=== PATIENT | female | born 1960 | race Caucasian/White ===

== ENCOUNTER 2016-11-09 07:39 | Day surgery (SDC) | payer OTHER ==
[2016-11-05 08:45] VITALS: BMI 33.9
[~2016-11-09 07:39] MED LIST: LACTATED RINGERS 1,000 ML IV SCH
[2016-11-09] MEDS ORDERED: LIDOCAINE 1% 20 ML VIAL (10MG/ML) FOR IV START INTRADERMA ONE (08:57)
[2016-11-09 09:08] VITALS: TEMP 97.7
[2016-11-09] MEDS ORDERED: LIDOCAINE 1% INJ 10MG/ML (20 ML MDV) ONE (09:17)
[2016-11-09] MEDS ORDERED: PROPOFOL 10 MG/ML 20 ML VIAL IV ONE (09:17)
[2016-11-09 09:41] VITALS: RESP 18
--- NOTE | 2016-11-09 09:44 | P.PCN ---
Date of Procedure: 11/09/16 Preoperative Diagnosis: Postoperative Diagnosis: Procedure(s) Performed: Procedure: Total colonoscopy. Preoperative diagnosis: Screening for neoplasia. Postoperative diagnosis: Mild sigmoid diverticulosis with no evidence of acute diverticulitis, strictures, polyps or cancer. Preparation: HalfLytely prep. Sedation: Was provided by anesthesia. Brief clinical history: The patient is a 55-year-old female who is referred for this evaluation for screening for neoplasia age being her risk factor. She has no abdominal complaints, bleeding or anemia. No family history of colon cancer. This would be her first colonoscopy. Procedure: With the patient on her left lateral decubitus position and after informed consent and adequate sedation, the perianal area was inspected and it did not show any fissures or fistulas. There were no masses felt on digital rectal examination. The Olympus CFQ 160L video colonoscope was then inserted in the rectum in the usual fashion and advanced to the cecum. The mucosa appeared healthy. No polyps or tumors were seen. There was occasional diverticular orifice seen in the distal sigmoid with no evidence of acute diverticulitis or strictures. No polyps or tumors were seen. I retroflexed the endoscope in the rectum before the endoscope was withdrawn. The patient tolerated the procedure well. Plan: The patient was reassured. Discussed dietary measures. She will follow- up with you as planned and I recommended repeat exam in 10 years. Implants: Indications for Procedure: Operative Findings: Description of Procedure:
[2016-11-09 09:57] VITALS: BP 107/50; PULSE 60
== END 2016-11-09 10:16 | disposition home or self-care (01) ==
LOC: ORWHC2ENDO 07:39
DX: Z12.11 Encounter for screening for malignant neoplasm of colon (principal); K57.30 Diverticulosis of large intestine without perforation or abscess without bleeding
CPT/HCPCS: J2001; J2704; G0121

== ENCOUNTER → 2017-12-01 | Outpatient (CLI) | payer BC ==
--- NOTE | 2017-12-01 12:28 | MM ---
Reason for exam: screening (asymptomatic). Last mammogram was performed 2 years and 3 months ago. History: Patient is postmenopausal. Took hormonal contraceptives for 1 year 6 months. Physical Findings: A clinical breast exam by your physician is recommended on an annual basis and results should be correlated with mammographic findings. MG Screening Mammo w CAD Bilateral CC and MLO view(s) were taken. Prior study comparison: September 09, 2015, right breast MG work up mamm w CAD RT. September 02, 2015, bilateral MG screening mammo w CAD. The breast tissue is heterogeneously dense. This may lower the sensitivity of mammography. No significant changes when compared with prior studies. ASSESSMENT: Negative, BI-RAD 1 RECOMMENDATION: Routine screening mammogram of both breasts in 1 year.
--- NOTE | 2017-12-01 12:52 | BD ---
EXAMINATION TYPE: Axial Bone Density DATE OF EXAM: 12/01/2017 COMPARISON: NONE CLINICAL HISTORY: 56 YR OLD FEMALE....ICD-10 CODE: E559 VIT D DEFICIENCY Height: 65 Weight: 209 FRAX RISK QUESTIONS: Family History (Parent hip fracture): YES Current Tobacco Use: STOPPED 2013 RISK FACTORS HISTORY OF: HX OF FRACTURES TO BOTH ANKLES BOTH < AGE 50 Family History of Osteoporosis: YES, SISTER, MOTHER WITH HIP FX, AND GRANDMOTHER Active: YES Diet low in dairy products/other sources of calcium: NO Postmenopausal woman: AT 51 YRS OLD Take estrogen and/or progesterone medications: ONLY BCP IN PAST FOR APROX 2 YRS MEDICATIONS: Additional Medications: VITD AND CALCIUM, Additional History: VIT D DEFICIENCY, OSTEOARTHRITIS EXAM MEASUREMENTS: Bone mineral densitometry was performed using the [employer] Imaging System. Bone mineral density as measured about the Lumbar spine is: ----- L1-L4(G/cm2): 0.815 T Score Values are as follows: ----- L1: -3.6 ----- L2: -4.1 ----- L3: -3.0 ----- L4: -2.0 ----- L1-L4: -3.0 Bone mineral density FIRST BONE DENSITY SCAN......BASELINE STUDY Bone mineral density about the R hip (g/cm2): 0.795 Bone mineral density about the L hip (g/cm2): 0.761 T Score values are as follows: -----R Neck: -2.0 -----L Neck: -2.3 -----R Total: -1.7 -----L Total: -2.0 Bone mineral density BASELINE STUDY FRAX%s....THERE IS A 17.4% CHANCE OF A MAJOR OSTEOPOROTIC FX AND A 1.5% FOR HIP FX......PROBABILITY O F FX IN 10 YRS TIME IMPRESSION: 1. Osteoporosis lumbar spine. 2. Osteopenia bilateral femora. NOTE: T-SCORE=SD OF THE YOUNG ADULT MEAN.
== END | disposition home or self-care (01) ==
LOC: RADMAMWWP 07:35
PROVIDERS: ATTEND Family Medicine
DX: Z12.31 Encounter for screening mammogram for malignant neoplasm of breast (principal); E55.9 Vitamin D deficiency, unspecified
CPT/HCPCS: 77067; 77080

== ENCOUNTER 2018-10-04 06:18 | Day surgery (SDC) | payer BC ==
[2018-10-02 09:29] VITALS: BMI 32.8
[~2018-10-04 06:18] MED LIST changes: +DEXAMETHASONE SOD PHOSPHATE 10 MG/ML 1 ML VIAL IV ONE; +LIDOCAINE 1% 20 ML VIAL (10MG/ML) FOR IV START INTRADERMA PRN; +MIDAZOLAM 2 MG/2 ML VIAL IV PRN; +ONDANSETRON 4 MG/2 ML VIAL IVP ONE; +Pre Op ABX Message 1 EACH MISC MISCELLANE ONE; +SCOPOLAMINE 1.5MG/72HR PATCH TRANSDERM ONE
[2018-10-04] MEDS ORDERED: HYDROmorphone (PF) 1 MG/ML ONE (07:25)
[2018-10-04] MEDS ORDERED: PROPOFOL 10 MG/ML 20 ML VIAL IV ONE (07:25)
[2018-10-04] MEDS ORDERED: fentaNYL (PF) 50 MCG/ML 2 ML AMP ONE (07:25)
[2018-10-04] MEDS ORDERED: LIDOCAINE 1% INJ 10MG/ML (20 ML MDV) ONE (07:25)
[2018-10-04] MEDS ORDERED: MIDAZOLAM 2 MG/2 ML VIAL ONE (07:25)
[2018-10-04] MEDS ORDERED: SUCCINYLCHOLINE CHLORIDE 100 MG/5 ML SYR IV ONE (07:25)
[2018-10-04] MEDS ORDERED: ceFAZolin 1,000 MG VIAL IVPB ONE (07:45)
[2018-10-04] MEDS ORDERED: BUPIVACAINE (PF) 0.5% 30 ML VIAL SQ ONE ×2 (07:59)
--- NOTE | 2018-10-04 08:32 | P.OP ---
Date of Procedure: 10/04/18 Preoperative Diagnosis: Right moderate to severe hallux rigidus Postoperative Diagnosis: Same Procedure(s) Performed: 1. Right first MTP implant arthroplasty and dorsal cheilectomy Anesthesia: LOKI Surgeon: Diogenes Molina Assistant Professor Of English #1: Lizeth Berman Estimated Blood Loss (ml): 5 IV fluids (ml): 500 Pathology: none sent Condition: stable Disposition: PACU Indications for Procedure: The patient is a very pleasant previously healthy 57-year-old female with a long-standing history of problems in the right first MTP joint. She developed moderate to severe hallux rigidus. The patient was initially seen by other provider was managed her for over 6 months with conservative treatment including activity modification, cortisone injections, orthotics, and rocker-bottom shoes all with diminishing relief. The patient was told by her prior surgeon that she was too overweight to have surgery on the right foot. She came to see me to discuss surgical treatment options. Due to the severity of arthritis we discussed performing a first MTP arthrodesis versus a Cartiva the implant arthroplasty. We discussed the pros and cons of both procedures. We discussed that historically implant arthroplasty of the first MTP joint had a very high failure rate, but the more recent orthopedic literature suggests implant survival and outcomes with Cartee the that are comparable to arthrodesis. The patient understands the limitations of both procedures and requested implant arthroplasty. She understands the potential risks and complications of surgery including but not limited to risk of anesthesia, superficial infection, deep infection, delayed wound healing, superficial wound necrosis, deep wound necrosis, stiffness, progression of arthritis, continued or worsened pain, fracture, DVT, PE, other medical complications, generalized satisfaction with surgery, need for implant removal and fusion, and possibly loss of life or limb. The patient voiced understanding of these potential complications and provided her verbal and written consent to go forward with surgery. Operative Findings: There were severe degenerative changes at the head of the first metatarsal with complete cartilage loss over the dorsal two thirds of the metatarsal head. There were large peripheral osteophytes. Description of Procedure: The patient was identified in preoperative holding and the correct right leg was marked with my initials. I reviewed the consent form with the patient and her . All of their questions were answered. The patient was then brought back to the operating room by anesthesia. She was positioned on the OR table and a general anesthetic and preoperative antibiotics were administered. A tourniquet was applied to the proximal aspect of the right leg. The left leg was secured to the table with foam and tape. A bump was placed under the right buttock internally rotating the leg to neutral. The right leg was then prepped and draped in the standard sterile fashion. Prior to starting surgery timeout was performed identifying the correct patient, operative extremity, and procedure. The leg was then elevated, exsanguinated with an Esmarch bandage, and the tourniquet was inflated to 250 mmHg. I began by outlining a longitudinal incision centered over the dorsomedial aspect of the first MTP joint. Skin incision was made with a scalpel and diss ection was carried down carefully taking care to not undermine the skin flaps. The EHL tendon sheath was incised and the tendon was retracted laterally. A longitudinal dorsal Capsulotomy was performed in line with the skin incision. Dissection was carried down medially and laterally to facilitate exposure of the first metatarsal head. On inspection there was a loose body within the joint which was removed. On inspection of the joint there was full-thickness cartilage loss over the dorsal two thirds of the first metatarsal head and peripheral osteophytes. A Ronguer was used to debride the osteophytes back to a stable base. The place or was placed in the central aspect of the metatarsal head and a guidepin was inserted through the cannulated slot of the slot. A cannulated reamer was then used to create a cavity for the Cartiva implant. The 10 mm implant was then dispensed. It was moistened with sterile saline. The introducer tube was also moistened with sterile saline and the implant was placed into the introducer tube with the flat side down. The introducer tube was then placed over the cavity and the first metatarsal head and the plunger was used to press-fit the implant within the metatarsal head. The implant was fully seated and I measured it to be 2-3 millimeters proud. Osteophytes were contoured off the proximal phalanx. The joint was brought through range of motion and was found to have good motion. The joint was thoroughly irrigated. The capsule was closed with a running 0 Vicryl stitch. The deep subcu was reapproximated using 2-0 Vicryl. The skin was closed with a running 3-0 Monocryl subcuticular stitch. 10 mL's of half percent Marcaine was injected around the incision. Brown quarter and stretchy Steri-Strips were placed to reinforce the skin closure. A sterile dressing consisting of Betadine soaked Adaptic, 4 x 4, and web roll was applied. The patient was then awoken from her anesthetic, transferred to a gurney, and brought to recovery having tolerated the procedure well. Lizeth Berman PA-C was required as a skilled accounting administrative assistant her patient positioning, surgical exposure, retraction, placement of implant, closure of wound, and dress ing placement. Plan: The patient can discharge home as an outpatient. She can weight-bear as tolerated in a tall boot. She is to leave her surgical dressing on for 2 days and can then remove the surgical dressing and at the incision wet in the shower but should not soak it. She should perform daily dressing changes. She will need follow-up in the office in 2 weeks for a wound check.
[2018-10-04 08:41] VITALS: TEMP 97
--- NOTE | 2018-10-04 08:46 | FL ---
Fluoroscopy History: Chielectomy rt great toe Chielectomy rt great toe. Dr. Molina, [place] time 2 sec. 1 OR paper film scanned
--- NOTE | 2018-10-04 08:47 | XR ---
EXAMINATION TYPE: XR toes RT DATE OF EXAM: 10/04/2018 COMPARISON: NONE HISTORY: Cheilectomy rt great toe. Cheilectomy rt great toe. Dr. Molina, [place] time 2 sec. 1 OR paper film scanned
[2018-10-04] MEDS: HYDROmorphone 0.5 MG/0.5 ML SYRINGE IVP PRN ×2 (08:54→09:05)
[2018-10-04] MEDS ORDERED: HYDROcodone/APAP 5-325MG 1 EACH TAB PO ONE (09:20)
[2018-10-04 09:26] VITALS: BP 121/78; PULSE 72; RESP 17
== END 2018-10-04 11:16 | disposition home or self-care (01) ==
LOC: OR 06:18
PROVIDERS: ATTEND Orthopaedic Surgery
DX: M20.21 Hallux rigidus, right foot (principal); M24.074 Loose body in right toe joint(s); M20.22 Hallux rigidus, left foot; M19.071 Primary osteoarthritis, right ankle and foot; M19.072 Primary osteoarthritis, left ankle and foot; Z87.891 Personal history of nicotine dependence; Z79.1 Long term (current) use of non-steroidal anti-inflammatories (NSAID)
CPT/HCPCS: 73660; 28291; C1713; J2250; J1100; J2405; J0690; J2001; J3010; J1170 ×2; J0330; J2704

== ENCOUNTER → 2019-01-03 | Outpatient (CLI) | payer BC, OTHER ==
--- NOTE | 2019-01-04 15:25 | MM ---
Reason for exam: screening (asymptomatic). Last mammogram was performed 1 year and 1 month ago. History: Patient is postmenopausal. Took hormonal contraceptives for 1 year 6 months. Physical Findings: A clinical breast exam by your physician is recommended on an annual basis and results should be correlated with mammographic findings. MG Screening Mammo w CAD Bilateral CC and MLO view(s) were taken. Prior study comparison: December 01, 2017, bilateral MG screening mammo w CAD. September 09, 2015, right breast MG work up mamm w CAD RT. The breast tissue is heterogeneously dense. This may lower the sensitivity of mammography. No significant changes when compared with prior studies. ASSESSMENT: Benign, BI-RAD 2 RECOMMENDATION: Routine screening mammogram of both breasts in 1 year.
== END | disposition home or self-care (01) ==
LOC: RADMAMWWP 15:06
PROVIDERS: ATTEND Family Medicine
DX: Z12.31 Encounter for screening mammogram for malignant neoplasm of breast (principal)
CPT/HCPCS: 77067

== ENCOUNTER 2021-08-07 05:35 | Day surgery (SDC) | payer OTHER ==
[2021-08-06 08:54] VITALS: BMI 34.9
[2021-08-07] MEDS ORDERED: LACTATED RINGERS 1,000 ML IV SCH (06:06)
[2021-08-07] MEDS ORDERED: SCOPOLAMINE 1.5MG/72HR PATCH TRANSDERM ONE (06:06)
[2021-08-07] MEDS ORDERED: ONDANSETRON 4 MG/2 ML VIAL IVP ONE (06:06)
[2021-08-07] MEDS ORDERED: DEXAMETHASONE SOD PHOSPHATE 4 MG/ML 1 ML VIAL IV ONE (06:06)
[2021-08-07] MEDS ORDERED: MIDAZOLAM 2 MG/2 ML VIAL IV PRN (06:06)
[2021-08-07] MEDS ORDERED: LACTATED RINGERS 1,000 ML IV ONE (06:27)
[2021-08-07] MEDS ORDERED: PROPOFOL 10 MG/ML 20 ML VIAL IV ONE (07:30)
[2021-08-07] MEDS ORDERED: MIDAZOLAM 2 MG/2 ML VIAL ONE (07:30)
[2021-08-07] MEDS ORDERED: BUPIVACAINE (PF) 0.25% 30 ML VIAL SQ ONE (07:30)
[2021-08-07] MEDS ORDERED: LIDOCAINE 1% INJ 10MG/ML (20 ML MDV) ONE (07:30)
[2021-08-07] MEDS ORDERED: fentaNYL (PF) 50 MCG/ML 2 ML AMP ONE (07:30)
[2021-08-07] MEDS ORDERED: SUCCINYLCHOLINE CHLORIDE 100 MG/5 ML SYR IV ONE (07:30)
--- NOTE | 2021-08-07 08:31 | P.OP ---
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 She was diagnosed with hallux rigidus. She previously underwent implant arthroplasty on the right and did very well with this. After failing over 1 year of conservative treatment she requested surgery on the left. We discussed different surgical options. Having had implant arthroplasty on the right she requested the same procedure on the left. We discussed the potential risks and complications of surgery including but certainly not limited to risks from anesthesia, superficial infection, deep infection, delayed wound healing, implant subsidence, stiffness, instability, deformity, continued pain, need for further surgery including conversion to a fusion, DVT, PE, other medical complications, and inability to regain preinjury level of function, dissatisfaction with surgical outcome, and possibly loss of life or limb. She provided both her verbal and written consent to go forward with surgery. Description of Procedure: The patient was identified in preoperative holding and the left foot and first MTP joint were marked with my initials. I reviewed the consent form with the patient and her . All of their questions were answered. The patient was then brought back to the operating room. She was positioned on the OR table where general anesthetic and preoperative antibiotics were given. A tourniquet was applied to the proximal aspect of the left thigh. All bony prominences were well-padded. The left leg was then prepped and draped in standard sterile fashion. A timeout was performed identifying the correct patient, operative extremity, and procedure. The patient's leg was then elevated, exsanguinated with an Esmarch bandage, and the tourniquet was inflated to 250 mmHg. I began by outlining a longitudinal incision centered over the dorsal aspect of the first MTP joint with a skin marker. An incision was made with a scalpel. Dissection was carried down carefully to the EHL tendon sheath which was incised and the tendon was retracted laterally. The capsule was incised longitudinally in line with the skin incision. There were several loose osteophytes which were removed. There were osteophytes over the dorsal aspect of the first MTP joint which were contoured. The first metatarsal head was sized to 10 mm. A guide was placed centered on the metatarsal head and a guidewire was placed in a retrograde fashion. The reamer was used to create a cavity. A 10 mm implant was dispensed and placed into the cavity. There was good circumferential bone and the implant appeared stable. There is good motion of the toe. The wound was thoroughly irrigated. The capsule was closed with interrupted 0 Vicryl. The deep subcu was reapproximated using 3-0 Monocryl interrupted sutures. Skin was closed with 3-0 nylon. Quarter percent Marcaine was injected around the incision. All instrument, sponge, and sharp counts were correct. Sterile dressing followed by postop she was applied. The patient was then brought to recovery having tolerated procedure well. Plan: The patient can heel weight-bear in a postoperative shoe. She will be for surgical dressing on until her first postoperative appointment. She'll be given pain medication. Due to preoperative risk stratification she'll be treated with aspirin for DVT prophylaxis. She will need follow-up in the office in 2 weeks for a wound check. She does not need x-rays at that time.
[2021-08-07 08:35] VITALS: TEMP 98
[2021-08-07] MEDS: HYDROmorphone 0.5 MG/0.5 ML SYRINGE IVP PRN ×2 (08:40→08:48)
[2021-08-07] MEDS ORDERED: HYDROcodone/APAP 5-325MG 1 EACH TAB ONE (09:32)
[2021-08-07 09:39] VITALS: BP 129/83; PULSE 70; RESP 16
== END 2021-08-07 10:20 | disposition home or self-care (01) ==
LOC: OR 05:35
PROVIDERS: ATTEND Orthopaedic Surgery
DX: M20.22 Hallux rigidus, left foot (principal); M19.072 Primary osteoarthritis, left ankle and foot
CPT/HCPCS: 28291; C1713; J2250; J0690; J2001; J3010; J0330; J2704; J1170

== ENCOUNTER → 2021-09-29 | Outpatient (CLI) | payer OTHER ==
--- NOTE | 2021-09-30 12:28 | MM ---
Reason for exam: screening (asymptomatic). Last mammogram was performed 2 years and 9 months ago. History: Patient is postmenopausal. Took hormonal contraceptives for 1 year 6 months. Physical Findings: A clinical breast exam by your physician is recommended on an annual basis and results should be correlated with mammographic findings. MG Screening Mammo w CAD Bilateral CC and MLO view(s) were taken. Prior study comparison: January 03, 2019, bilateral MG screening mammo w CAD. December 01, 2017, bilateral MG screening mammo w CAD. The breast tissue is heterogeneously dense. This may lower the sensitivity of mammography. No significant changes when compared with prior studies. ASSESSMENT: Benign, BI-RAD 2 RECOMMENDATION: Routine screening mammogram of both breasts in 1 year.
== END | disposition home or self-care (01) ==
LOC: RADMAMWWP 07:07
PROVIDERS: ATTEND Family Medicine
DX: Z12.31 Encounter for screening mammogram for malignant neoplasm of breast (principal); Z78.0 Asymptomatic menopausal state
CPT/HCPCS: 77067

== ENCOUNTER 2022-12-20 20:37 | Emergency (ER) | payer OTHER ==
[2022-12-20 20:59] VITALS: RESP 18; TEMP 98.7
--- NOTE | 2022-12-20 21:17 | ED ---
General Adult HPI - General Chief complaint: Extremity Injury, Lower Stated complaint: R Leg Injury Time Seen by Provider: 12/20/22 21:06 Source: patient, RN notes reviewed Mode of arrival: wheelchair Limitations: no limitations - History of Present Illness Initial comments: 62-year-old female presents to the emergency department with chief complaint of right ankle pain. Patient states that she stepped off a curb and twisted her ankle. She states that she inverted the ankle. - Related Data Previous Rx's Medication Instructions Recorded Aspirin 81 mg PO BID 30 Days #60 tab 08/07/21 Docusate [Colace] 100 mg PO BID #60 capsule 08/07/21 HYDROcodone/APAP 5-325MG [Nicasio 1 tab PO Q6HR PRN 7 Days #28 tab 08/07/21 5-325] Allergies Allergy/AdvReac Type Severity Reaction Status Date / Time No Known Allergies Allergy Verified 12/20/22 20:59 Review of Systems ROS Statement: Those systems with pertinent positive or pertinent negative responses have been documented in the HPI. ROS Other: All systems not noted in ROS Statement are negative. Past Medical History Past Medical History: Osteoarthritis (OA) History of Any Multi-Drug Resistant Organisms: None Reported Past Surgical History: Section, Orthopedic Surgery Additional Past Surgical History / Comment(s): Right wrist ganglion cyst, arthroscopy left knee, tendon surgery right hand, bony growth removed left foot. Past Anesthesia/Blood Transfusion Reactions: No Reported Reaction Past Psychological History: No Psychological Hx Reported Smoking Status: Former smoker Past Alcohol Use History: None Reported Past Drug Use History: None Reported - Past Family History Mother Family Medical History: No Reported History General Exam Limitations: no limitations General appearance: alert, in no apparent distress Head exam: Present: atraumatic, normocephalic, normal inspection Eye exam: Present: normal appearance ENT exam: Present: normal exam, mucous membranes moist Neck exam: Present: normal inspection. Absent: tenderness, meningismus, lymphadenopathy Respiratory exam: Present: normal lung sounds bilaterally. Absent: respiratory distress, wheezes, rales, rhonchi, stridor Cardiovascular Exam: Present: regular rate, normal rhythm, normal heart sounds. Absent: systolic murmur, diastolic murmur, rubs, gallop, clicks Extremities exam: Present: tenderness (lateral right ankle ), normal capillary refill, joint swelling (lateral right ankle ), other (DP and PT pulses 2+). Absent: full ROM (Decreased range of motion of right ankle due to swelling), pedal edema, calf tenderness Back exam: Present: normal inspection Neurological exam: Present: alert, oriented X3 Psychiatric exam: Present: normal affect, normal mood Skin exam: Present: warm, dry, intact, normal color. Absent: rash Course Vital Signs 12/20/22 12/20/22 20:54 23:05 Temperature 98.7 F 98.7 F Pulse Rate 97 82 Respiratory 18 18 Rate Blood Pressure 158/85 O2 Sat by Pulse 97 Oximetry Medical Decision Making - Medical Decision Making Was pt. sent in by a medical professional or institution (, PA, APARTMENT RENTAL CLERK, urgent care, hospital, or half-way...) When possible be specific @ -No Did you speak to anyone other than the patient for history (EMS, parent, family, police, friend...)? What history was obtained from this source @ -No Did you review nursing and triage notes (agree or disagree)? Why? @ -I reviewed and agree with nursing and triage notes Were old charts reviewed (outside hosp., previous admission, EMS record, old EKG, old radiological studies, urgent care reports/EKG's, half-way records)? Report findings @ -No old charts were reviewed Differential Diagnosis (chest pain, altered mental status, abdominal pain women, abdominal pain men, vaginal bleeding, weakness, fever, dyspnea, syncope, headache, dizziness, GI bleed, back pain, seizure, CVA, palpatations, mental health, musculoskeletal)? @ -Differential Musculoskeletal Muscular strain, contusion, ligament sprain, fracture, arthritis, septic arthritis, bursitis, cellulitis, muscle spasm, nerve compression, DVT, arterial occlusion, herpes zoster, electrolyte abnormality, tumor.... This is not meant to be in all inclusive list EKG interpreted by me (3pts min.). @ -None X-rays interpreted by me (1pt min.). @ -XR showed fracture of tip of fibula CT interpreted by me (1pt min.). @ -None done U/S interpreted by me (1pt. min.). @ -None done What testing was considered but not performed or refused? (CT, X-rays, U/S, labs)? Why? @ -None What meds were considered but not given or refused? Why? @ -None Did you discuss the management of the patient with other professionals (pr ofessionals i.e. , PA, APARTMENT RENTAL CLERK, lab, RT, psych nurse, secondary social studies teacher, welder apprentice arc, teacher, planned giving officer, pillowcase cleaner)? Give summary @ -No Was smoking cessation discussed for >3mins.? @ -No Was critical care preformed (if so, how long)? @ -No Were there social determinants of health that impacted care today? How? (Homelessness, low income, unemployed, alcoholism, drug addiction, transportation, low edu. Level, literacy, decrease access to med. care, shelter, rehab)? @ -No Was there de-escalation of care discussed even if they declined (Discuss DNR or withdrawal of care, Hospice)? DNR status @ -No What co-morbidities impacted this encounter? (DM, HTN, Smoking, COPD, CAD, Cancer, CVA, ARF, Chemo, Hep., AIDS, mental health diagnosis, sleep apnea, morbid obesity)? @ -None Was patient admitted / discharged? Hospital course, mention meds given and route, prescriptions, significant lab abnormalities, going to OR and other pertinent info. @ -discharged patient presented to the emergency department for chief complaint of ankle pain following an inversion injury that occurred when she stepped off a ledge. XR obtained showed acute fracture of tip of fibula. Patient given crutches and advised to follow up with orthopedics. BRYON discussed. Patient stable at time of discharge. Case discussed with my attending, Dr. Adorno Undiagnosed new problem with uncertain prognosis? @ -No Drug Therapy requiring intensive monitoring for toxicity (Heparin, Nitro, Insulin, Cardizem)? @ -No Were any procedures done? @ -No Diagnosis/symptom? @ -distal fibula fracture Acute, or Chronic, or Acute on Chronic? @ -Acute Uncomplicated (without systemic symptoms) or Complicated (systemic symptoms)? @ -Uncomplicated Side effects of treatment? @ -No Exacerbation, Progression, or Severe Exacerbation? @ -No Poses a threat to life or bodily function? How? (Chest pain, USA, OR, pneumonia, PE, COPD, DKA, ARF, appy, cholecystitis, CVA, Diverticulitis, Homicidal, Suicidal, threat to staff... and all critical care pts) @ -No Disposition Clinical Impression: Fracture of distal fibula Disposition: HOME SELF-CARE Condition: Stable Instructions (If sedation given, give patient instructions): Ankle Fracture (ED), Ankle Sprain (ED) Additional Instructions: Please follow up with orthopedics. Return to the emergency department for new or worsening symptoms. Is patient prescribed a controlled substance at d/c from ED?: No Referrals: Adriel Wallace MD [Primary Care Provider] - 1-2 days Diogenes Molina MD [Medical Doctor] - 1-2 days Time of Disposition: 22:23
[2022-12-20] MEDS ORDERED: KETOROLAC 15 MG/ML 1 ML VIAL IM STA (21:36)
--- NOTE | 2022-12-20 22:00 | XR ---
EXAMINATION TYPE: XR ankle complete RT DATE OF EXAM: 12/20/2022 9:33 PM INDICATION: Patient age:Female; 62 years old; Reason for study: inversion injury; COMPARISON: None TECHNIQUE: The right ankle is imaged in frontal, lateral and oblique projections. FINDINGS/IMPRESSION: Acute fracture of the tip of the fibula with soft tissue edema. No other fractures visualized. No add itional fractures visualized.
[2022-12-20 23:08] VITALS: BP 158/85; PULSE 82
== END 2022-12-20 23:05 | disposition home or self-care (01) ==
LOC: EC 20:37
DX: S82.401A Unspecified fracture of shaft of right fibula, initial encounter for closed fracture (principal); Z87.891 Personal history of nicotine dependence; X50.1XXA Overexertion from prolonged static or awkward postures, initial encounter
CPT/HCPCS: 73610; 99283; 96372; J1885